=== PATIENT | female | born 1935 | race Caucasian/White ===

== ENCOUNTER 2016-10-12 18:04 | Inpatient (IN) | payer MEDICARE, BC ==
[~2016-10-12] VITALS: Ht 157.5 cm; Wt 60.9 kg
[2016-10-12 18:55] LABS: BASOPHILS 0.1 % (0.0-2.0); EOSINOPHILS 0 % (0-7); HEMATOCRIT 45.3 % (36.0-48.0); HEMOGLOBIN 15.9 g/dL (12-16); IMMATURE GRANULOCYTES 0.4 % (0-5); LYMPHOCYTES 3.4 % (15-50); MCH 31.2 pg (26.0-34.0); MCHC 35.1 g/dL (31.0-37.0); MCV 88.8 fL (80.0-100.0); MEAN PLATELET VOLUME 8.5 fL (7.4-10.4); NEUTROPHILS 88.1 % (40-80); PLATELET COUNT 194 10x3/uL (130-400); RDW 12.8 % (11.5-14.5); WBC 17.8 10x3/uL (4.8-10.8)
[2016-10-12 19:23] LABS: ALBUMIN 4.2 g/dL (3.4-5.0); ALKALINE PHOSPHATASE 99 U/L (46-116); ALT (SGPT) 42 U/L (10-68); BILIRUBIN - TOTAL 0.55 mg/dL (0.2-1.3); CALC OSMOLALITY 266 mosm/kg (275-300); CALCIUM 9.6 mg/dL (8.5-10.1); CARBON DIOXIDE 28.6 mmol/L (21.0-32.0); CHLORIDE - SERUM 90 mmol/L (98-107); CREATININE - SERUM 0.7 mg/dL (0.6-1.3); GLUCOSE 150 mg/dL (74-106); POTASSIUM - SERUM 4.8 mmol/L (3.5-5.1); PROTEIN - SERUM 7.4 g/dL (6.4-8.2); SODIUM 130 mmol/L (136-145); UREA NITROGEN 20 mg/dL (7-18); eGFR NON AFRICAN AMERICAN 85 mL/min (90-120)
[2016-10-12 19:29] LABS: TROPONIN-I < 0.017 ng/mL (0.000-0.060)
[2016-10-12 19:33] LABS: UDS - AMPHET NEGATIVE QUAL (NEGATIVE); UDS - BARB NEGATIVE QUAL (NEGATIVE); UDS - BENZO NEGATIVE QUAL (NEGATIVE); UDS - COCAINE NEGATIVE QUAL (NEGATIVE); UDS - METH NEGATIVE QUAL (NEGATIVE); UDS - OPIATE NEGATIVE QUAL (NEGATIVE); UDS - PCP NEGATIVE QUAL (NEGATIVE); UDS - THC NEGATIVE QUAL (NEGATIVE)
[2016-10-12 19:52] LABS: APPEARANCE CLOUDY (CLEAR); BILIRUBIN NEGATIVE (NEGATIVE); COLOR YELLOW (YELLOW); EPITHELIAL CELLS 0-5 /hpf (0-5); GLUCOSE NEGATIVE (NEGATIVE); KETONE NEGATIVE (NEGATIVE); LEUKOCYTE ESTERASE 1+ (NEGATIVE); NITRITE POSITIVE (NEGATIVE); PROTEIN NEGATIVE (NEGATIVE); SPECIFIC GRAVITY 1.015 (1.005-1.020); UROBILINOGEN NORMAL (NORMAL); WHITE CELLS - URINE 25-50 /hpf (0-5)
[2016-10-12 19:53] LABS: BACTERIA MANY /hpf (NONE SEEN)
[2016-10-12 21:45] VITALS: BP 129/83
--- NOTE | 2016-10-12 21:45 | NUR ---
PT ARRIVED TO ICU VIA HOSPITAL BED. PIV TO RIGHT WRIST; PATENT. PIV TO LEFT WRIST; PATENT. ROOM AIR ON ARRIVAL PLACED ON 2L VIA NC. ZACARIAS IN PLACE; CONCENTRATED, CLOUDY; JANETT URINE. PT LETHARGIC; AROUSES TO VOICE. ORIENTED TO SELF; AGE. UNAWARE OF TIME; SITUATION; AND PLACE. ASSESSMENT COMPLETE. S1S2. NSR SHOWING ON MONITOR. REDDENED/RASH/HIVE AREA ON LEFT LOWER BACK REGION MEASURING APPROX. 5-6 INCHES; NON BLANCHABLE. 2CM REDDENED CIRCULAR AREA LOCATED ON COCCYX; NON BLANCHABLE. GENERALIZED BRUISING TO EXTREMITIES. PERRLA; 4MM BRISK.
[2016-10-12 21:56] VITALS: BP 129/83; BMI 20.1
[2016-10-12 22:00] VITALS: BP 138/71
--- NOTE | 2016-10-12 22:10 | NUR ---
FAMILY AT BEDSIDE. UPDATE GIVEN.
[2016-10-12] MEDS ORDERED: CATAPRES TTS-10.1 MG TD (22:11)
[2016-10-12] MEDS ORDERED: SOMA350 MG PO (22:12)
[2016-10-12] MEDS ORDERED: REMERON30 MG PO (22:12)
[2016-10-12] MEDS ORDERED: FUROSEMIDE20 MG PO (22:13)
[2016-10-12] MEDS ORDERED: K-TAB10 MEQ PO (22:13)
[2016-10-12] MEDS ORDERED: KLONOPIN0.5 MG PO (22:13)
[2016-10-12] MEDS ORDERED: TOPROL XL100 MG PO (22:14)
[2016-10-12 22:30] VITALS: BP 144/71
[2016-10-12 23:00] VITALS: BP 143/74
[2016-10-13] VITALS (40 sets, daily range): BP systolic 64–125; BP diastolic 38–66; Ht 157.5 cm; Wt 60.9 kg
--- NOTE | 2016-10-13 00:37 | NUR ---
PT RESTING; EYES CLOSED. VSS. NO DISTRESS NOTED. WILL CONTINUE TO MONITOR.
--- NOTE | 2016-10-13 01:30 | NUR ---
ORAL CARE PROVIDED. BLACK RESIDUE BUILT UP IN TEETH; ROOF OF MOUTH; TONGUE; AND IN BUCCAL CAVITY.
--- NOTE | 2016-10-13 03:15 | NUR ---
REASSESSMENT COMPLETE. PT LETHARGIC; RESPONDS TO PAINFUL STIMULI. ABLE TO STATE NAME THEN IMMEDIATELY FALLS BACK ASLEEP. NOTED DECREASE IN BP AND HR. MONITORING CLOSELY.
[2016-10-13 04:16] LABS: BASOPHILS 0 % (0.0-2.0); EOSINOPHILS 0.1 % (0-7); HEMATOCRIT 43.5 % (36.0-48.0); HEMOGLOBIN 15.2 g/dL (12-16); IMMATURE GRANULOCYTES 0.2 % (0-5); LYMPHOCYTES 5.7 % (15-50); MCHC 34.9 g/dL (31.0-37.0); MCV 88.8 fL (80.0-100.0); MEAN PLATELET VOLUME 8.6 fL (7.4-10.4); PLATELET COUNT 205 10x3/uL (130-400); RDW 13.1 % (11.5-14.5); WBC 12.3 10x3/uL (4.8-10.8)
[2016-10-13 04:25] LABS: CALC OSMOLALITY 262 mosm/kg (275-300); CALCIUM 8.8 mg/dL (8.5-10.1); CARBON DIOXIDE 29.7 mmol/L (21.0-32.0); CHLORIDE - SERUM 92 mmol/L (98-107); CREATININE - SERUM 0.7 mg/dL (0.6-1.3); GLUCOSE 125 mg/dL (74-106); SODIUM 129 mmol/L (136-145); UREA NITROGEN 21 mg/dL (7-18); eGFR NON AFRICAN AMERICAN 85 mL/min (90-120)
[2016-10-13 04:28] LABS: POTASSIUM - SERUM 4.9 mmol/L (3.5-5.1)
--- NOTE | 2016-10-13 05:18 | NUR ---
PT CONTINUES TO BE BRADYCARDIC; BP REMAINS WITH MAP ABOVE 65. WILL CONTINUE TO MONITOR.
--- NOTE | 2016-10-13 07:00 | NUR ---
PT REPORT REC'D, PT CARE ASSUMED. PT LETHARGIC, DOES NOT RESPOND TO STERNAL RUB, DOES NOT FOLLOW COMMANDS. VSS, 2LNC. LEFT AND RIGHT WRIST PIV DRESSING CDI, SEE IV FLOW SHEET. SHIFT ASSSESSMENT COMPLETED, SEE FLOW SHEET. ROOM FREE OF CLUTTER CALL LIGHT IN REACH, WILL CONTINUE TO MONITOR PT.
--- NOTE | 2016-10-13 08:30 | NUR ---
PT ASKING TO GET ON BED PRADHAN, PLACED PT ON BEDPAN, 200 CC CLEAR YELLOW URINE
--- NOTE | 2016-10-13 10:41 | NUR ---
Is the patient Alert and Oriented? No 0 * How many steps to enter\exit or inside your home? 0 0 * PCP MARC LI APN AT DR. CHAVES'S OFFICE 0 * Pharmacy [facility] 0 * Preadmission Environment Assisted Living 0 * Facility Name [facility] 0 * ADLs Independent 0 * Equipment Rolling Walker Shower Chair 0 * Other Equipment RAISED TOILET SEAT 0 * List name and contact numbers for known caregivers / representatives who currently or will assist patient after discharge: DAUGHTER: JESSICA SINGH [phone] 0 * Community resources currently utilized Home Health 0 * Please name any agencies selected above. [facility] AND [facility] 0 * Additional services required to return to the preadmission environment? Yes 0 * Can the patient safely return to the preadmission environment? No 0 * Has this patient been hospitalized within the prior 30 days at any hospital? No PATIENT LIVES ALONE AT [facility]. SHE WAS INDEPENDENT IN ALL HER ADL'S. PATIENT'S DAUGHTER IS AT THE BEDSIDE AND ANSWERS MY QUESTIONS. SHE STATES THAT HER MOTHER SEES MARC LI APN AT DR. CHAVES'S OFFICE. SHE GETS HER MEDS FROM [facility]. PATIENT HAS A WALKER, SHOWER CHAIR, AND RAISED TOILET SEAT. PATIENT IS CURRENT WITH [facility] AND RECEIVING PT AND OT ACCORDING TO PATIENT'S DAUGHTER. SHE STATES THERE ARE NO STEPS TO ENTER HER MOTHERS HOME. PATIENT TOOK OVERDOSE OF MEDICATIONS AND TOLD HER DAUGHTER SHE WAS TRYING TO KILL HERSELF. PATIENT IS TO BE EVALUATED BY PSYCHIATRY AND POSSIBLE GO TO CARE WHEN SHE IS MEDICALLY STABLE. CM TO FOLLOW.
--- NOTE | 2016-10-13 11:00 | NUR ---
PT DAUGHTER AT THE BEDSIDE, ALL QUESTIONS ANSWERED, VSS. REASSESSMENT COMPLETED, SEE FLOW SHEET. ROOM FREE OF CLUTTER, CALL LIGHT IN REACH. PT CLOSE TO NURSES STATION, WILL CONTINUE TO MONITOR PT.
--- NOTE | 2016-10-13 12:05 | NUR ---
PT LETHARGIC, NON RESPONSIVE, NARCAN GIVEN, NO RESPONSE FROM PT, DR. CHAVES INFORMED.
--- NOTE | 2016-10-13 12:31 | NUR ---
ROMAZICON GIVEN, PT LIFTED EYEBROWS, NO VERBAL RESPONSE. PT DOES NOT FOLLOW COMMANDS. DR. CHAVES INFORMED. WILL CONTINUE TO MONITOR PT.
--- NOTE | 2016-10-13 15:00 | NUR ---
PT RESTING WITH EYES CLOSED, NO RESPONSE TO STIMULI. REASSESSMENT COMPLETED, SEE FLOW SHEET. REASSESSMENT COMPLETED, SEE FLOW SHEET. ROOM FREE OF CLUTTER, CLOSE TO NURSES STATION. WILL CONTINUE TO MONITOR PT.
--- NOTE | 2016-10-13 19:00 | NUR ---
REPORT RECEIVED AND ASSESSMENT COMPLETED. SEE FLOWSHEET FOR FULL DETAILS.
--- NOTE | 2016-10-13 21:00 | NUR ---
PT REPOSITIONED IN BED. PT ON DOPAMINE DRIP AT 5 MCG. VSS. WILL MONITOR CLOSELY FOR CHANGES.
--- NOTE | 2016-10-13 23:00 | NUR ---
REASSESSMENT COMPLETED. SEE FLOWSHEET. SPOKE WITH FAMILY REGARDING PATIENTS CARE AND MEDICATIONS DURING THE 2200 HOUR. REPOSITIONED PATIENT AT THIS TIME.
[2016-10-14] VITALS (63 sets, daily range): BP systolic 93–166; BP diastolic 8–81
--- NOTE | 2016-10-14 01:42 | NUR ---
DOPAMINE INCREASED TO 6 MCG IN ORDER TO OBTAIN A SYSTOLIC PRESSURE ABOVE 90. WILL CONTINUE TO MONITOR.
--- NOTE | 2016-10-14 03:16 | NUR ---
REASSESSMENT COMPLETE, NO CHANGES NOTED, WILL CON'T TO MONITOR
--- NOTE | 2016-10-14 05:15 | NUR ---
REPOSITONED FOR COMFORT, WILL CON'T TO MONITOR
--- NOTE | 2016-10-14 07:15 | NUR ---
REC'E REPORT AND RESUMED CARE, OPENS EYES, DOES NOT FOLLOW COMMANDS, O2 VIA NC AT 2L SAT 96%, DOPAMINE INFUSING AT 6 MCG, BP 112/55, WITH MAP OF 73, OTHER VSS, RIGHT AND LEFT WRIST PIV'S WITH CDI DRESSING, ZACARIAS TO GRAVITY WITH CLEAR YELLOW DRAINAGE, SCD'S B/L, REPOSITIONED TO LEFT SIDE WITH PILLOW PROPPED TO BACK AND HEELS FLOATED, DAUGHTER AT BEDSIDE, DISCUSSED ALTERED MENTAL STATUS AND BP [facility] CAUSES FOR HOSPITALIZATION, AWAITNG TO SPEAK WITH DR CHAVES RE: POC, NO OTHER NEEDS AT THIS TIME
--- NOTE | 2016-10-14 07:45 | NUR ---
DR CHAVES AT BEDSIDE, SPOKE WITH DAUGHTER, AWAITING PROGNOSIS FROM DR ESCOBAR CONSULT, NO NEW ORDERS AT THIS TIME
--- NOTE | 2016-10-14 07:48 | HP ---
PATIENT: JEET POPE MEDICAL RECORD: [id number] ACCOUNT: [id number] LOCATION:[facility] D.2306 : 36 ADMISSION DATE: 10/12/16 HISTORY AND PHYSICAL EXAMINATION REASON FOR ADMISSION: Altered mental status, possible OD. HISTORY OF PRESENT ILLNESS: The patient is a 80-year-old female with history of bipolar illness. She also has hypertension. Daughter says she is using polypharmacy in her blood pressure medications to adjust her blood pressure. Her daughter states that possibly, her mother took at least 20 metoprolol tablets. She did not tell her and when she went to see her yesterday afternoon, she was found leaning back in a chair over the side of the rail upside down with vomitus in her mouth. She was brought in by EMS to the hospital and admitted to the ICU. The patient did admit to her daughter that she attempted suicide because she was tired of living the way she was living. PAST MEDICAL HISTORY: Longstanding history of bipolar illness, anxiety, chronic pain syndrome, hearing loss, urinary retention, has used a catheter in the past. Spastic torticollis diagnosed at age 30. PAST SURGICAL HISTORY: Appendectomy in 1944, hysterectomy in 1973, hysterectomy in 1973, colonoscopy on 09/21/2015 SOCIAL HISTORY: She is . Not a former smoker, does not use alcohol. 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 She recently moved here from [place]. Her daughter cares for her. FAMILY HISTORY: Father at 76, with hypertension, COPD and cancer of the lung. Mother at 98, with hypertension and senescence. ALLERGIES: MINOO INHIBITORS, AMLODIPINE, AMOXIL, APRESOLINE, BACTRIM, BENICAR, BYSTOLIC, DILACOR, DIOVAN, HYZAAR AND PROZAC. CURRENT MEDICATIONS: Clonidine 0.1 mg patch q. week, mirtazapine 30 mg tablets at bedtime, Soma 350 p.o. 4 times daily, Lasix 20 mg q.a.m., colestipol 1 g tablet p.o. t.i.d., clonazepam 0.5 mg p.o. b.i.d., [place] 5/325 one q.6 for pain, potassium chloride ER 10 mEq p.o. daily, Toprol ER 100 mg p.o. twice a day. REVIEW OF SYSTEMS: Unobtainable from the patient except as noted by the daughter. PHYSICAL EXAMINATION: GENERAL: The patient at this time is minimally arousable to pain. VITAL SIGNS: Blood pressure is 100/60, heart rate is 58 and regular, respirations are 22. She is afebrile. HEENT: Pupils were somewhat pinpoint, but reactive. Sclerae nonicteric. Oropharynx unremarkable except for some dried dark mucus around her mouth. NECK: Supple. CHEST: Shows bilateral wheeze in the upper lobes. No rales. HEART: Bradycardic without murmur. ABDOMEN: Soft and nontender. PELVIC: Deferred. EXTREMITIES: No CC and E. NEUROLOGICAL: The patient responds to some vocal commands with yes and no. She HISTORY AND PHYSICAL [id number] JEET POPE is moving arms and legs without difficulty. IMAGING: CT of the brain shows some atrophy, no acute changes. Chest x-ray is unremarkable. It does show an ascending aortic aneurysm, however. LABORATORY DATA: Her lab work on admission showed a white count of 17.8 thousand, H&H of 15 and 45.3 respectively, platelet count 194,000 with left shift. Blood gas showed a pH 7.4, CO2 of 41, pO2 of 90 on 2 L. Chemistry showed sodium 130, potassium 4.8, carbon dioxide 28.6, BUN 20, creatinine 0.7. Liver function is normal except for an AST of 125. Urine drug screen was negative. Urinalysis was cloudy, nitrite positive with 25-50 white cells. Again, CT of the brain showed atrophy, small vessel changes, no acute intracranial abnormality. Chest x-ray showed ascending aortic enlargement, no pulmonary abnormalities. ASSESSMENT: 1. Possible beta-jose suicide attempt with overdose. 2. Altered mental status secondary to #1. 3. Bipolar depression. 4. Bradycardia due to overdose. 5. Urinary tract infection. 6. Chronic pain syndrome. 7. Chronic urinary retention, post-menopausal, post-hysterectomy, presbycusis, spastic torticollis, osteoarthritis, gastroesophageal reflux disease, essential hypertension. PLAN: The patient is in ICU, her daughter is at the bedside. She confirms DNR status. We will have psychiatric evaluation at this time. Monitor for further bradycardia and we will treat for UTI based on culture. TRANSINT:[id number] Voice Confirmation ID: [id number] DOCUMENT ID: [id number] MOHAMUD CHAVES MD at 0748 CC: [id number] DICTATION DATE: 10/13/16853 CIVIL CAD TECH: 10/13/16 1041 ADM IN [facility] [address] [id number]
--- NOTE | 2016-10-14 08:20 | NUR ---
DR ESCOBAR AT BEDSIDE FOR EVAL, NO NEW ORDERS AT THIS TIME
--- NOTE | 2016-10-14 08:50 | NUR ---
AM MEDS GIVEN WITHOUT DIFFICULTY
--- NOTE | 2016-10-14 09:00 | NUR ---
DAUGHTER AND FRIENDS AT BEDSIDE, PATIENT EYES ARE OPENED WHEN ASKED IF SHE COULD HEAR, SHE RESPONED WITH YES. ATTEMPTS MADE BY PATIENT TO TRACK IN THE DIRECTION OF VOICES, DOES NOT ATTEMPT TO SQUEEZE HAND WHEN PROMPTED
--- NOTE | 2016-10-14 09:54 | NUR ---
TO CT VIA BED WITH PERSONNEL X2, VSS, CONITNUES ON DOPAMINE AT 6MCG
--- NOTE | 2016-10-14 10:00 | NUR ---
TIME FOR REPEAT HEAD CT NOTED TO BE FOR 10/15, EXAM NOT COMPLETED BROUGHT BACK TO ROOM AND RECONNECTED TO MONITOR, VSS, REPOSITIONED UP AND TO BACK WITH HEELS FLOATED
--- NOTE | 2016-10-14 11:00 | NUR ---
NO ACUTE CHANGE FROM PREVIOUS ASSESSMENT, VSS, NO SIGNS OF DISTRESS, CONTINUES ON DOPAMINE AT 6 MCG, NS AT 150 CC/HR.
--- NOTE | 2016-10-14 12:25 | NUR ---
EEG COMPLETED BY NEURO TECH, TOLERATED WITHOUT DIFFICULTY
--- NOTE | 2016-10-14 12:30 | NUR ---
FAMILY AT BEDSIDE, STATUS UPDATED, VOICES NO NEEDS AT THIS TIME
--- NOTE | 2016-10-14 14:58 | NUR ---
NS 1000ML BAG HUNG FOR INFUSION, RATE CONTINUED AT 150 CC/HR, RESTING WITH NO SIGNS OF DISTRESS, VSS, CONTINUES ON DOPAMINE AT 6 MCG, AROUWES TO VERBAL STIMULI, SLOW TO RESPOND BUT FOLLOWS COMMANDS, STATES ONE WORD TO YES OR NO QUESTIONS, TRACKS AROUND ROOM, DOES NOT MAKE SENTENCES, NO OTHER ACUTE CHANGE FROM PREVIOUS ASSESSMENT
--- NOTE | 2016-10-14 15:05 | NUR ---
FAMILY AT BEDSIDE, STATUS UPDATED, VOICES NO NEEDS AT THIS TIME
--- NOTE | 2016-10-14 18:00 | NUR ---
FAMILY AT BEDSIDE, STATUS UPDATE, TOOTHETTES TO BEDSIDE FOR MOUTH MOISTURE, NO OTHER NEEDS AT THIS TIME
--- NOTE | 2016-10-14 19:00 | NUR ---
Assessment complete. See flowsheet. Pt eyes closed upon entrance into room with respirations shallow and unlabored. Pt receiving O2 @ 2L NC. Lung sounds present crackles to RUL RML and clear to KRISTOFER with diminished lower lobes. HR SR with S1S2 auscultated. All peripheral pulses +1 with capillary refill <3 seconds. Pt moves extremities with 1/5 strength to command. Pt tracks with eyes but not attempting conversation at this time. Pupils size 3 bilaterally ERRL. Right forearm 22g PIV site CDI no s/s infection or infiltration with NS infusing @ 150cc/hr. Left wrist 20g PIV site CDI no s/s infection or infiltration with Dopamine infusing @ 3mcg/kg/min. Abdomen soft, non-distended with BS hypoactive to all quadrants. Evans catheter secure retrieving clear/yellow urine. SCDs secure. Pt positioned to left side. HOB @ 30 degrees. Arms and heels bridged. NO s/s pain or distress. CPOC.
--- NOTE | 2016-10-14 21:00 | NUR ---
Pt family here with update given and questions addressed. Family providing oral swabs with fresh ice water. Pt positioned to right side. HOB @ 30 degrees. No neuro changes to note.
--- NOTE | 2016-10-14 23:00 | NUR ---
Reassessment complete. See flowsheet. No neuro changes to note. O2 @ 2L NC. Lung sounds continue to present crackles to RUL RML with diminished lower lobes. HR SR with S1S2 auscultated. PIV sites remain CDI with NO IVF changes to note from previous assessment. BS remain hypoactive to all quadrants. Evans remains secure retrieving clear/yellow urine. Pt repositioned to back with HOB @ 30 degrees. Arms and heels remain bridged. Linens clean and dry. Temp 98.9F temporally. CPOC.
--- NOTE | 2016-10-14 23:33 | NUR ---
SBPs 150-170. Dopamine wean initiated from 3-2mcg/kg/min. HR 72bpm currently.
[2016-10-15] VITALS (25 sets, daily range): BP systolic 124–173; BP diastolic 58–85
--- NOTE | 2016-10-15 01:00 | NUR ---
Pt repositioned to left side. HOB @ 30 degrees. Dopamine gtt weaned off. VSS. NO s/s pain or distress. CPOC.
--- NOTE | 2016-10-15 03:00 | NUR ---
Reassessment complete. See flowsheet. Pt awake and following partial conversation at this time. Pt remains oriented to person only and continues to follow commands to move extremities but unable to move against gravity at this time. Speech is very soft and the patient is not able to speak in complete sentences and repeats herself frequently. O2 @ 2L NS. Lung sounds currently present fine crackles to all pino with diminished lower lobes. Pt encouraged to cough but states "no". HR remains SR with S1S2 auscultated. PIV sites CDI with left wrist PIV CDI; saline locked and right forearm PIV site with NS infusing @ 150cc/hr. BS remain hypoactive to all quadrants. Evans secure and retrieving clear/yellow urine. Pt pulled up in bed and positioned to back with HOB elevated to 30 degrees and arms/heels rebridged. SCDs remain secure. Linens clean/dry. Television turned on TVN per request. NO other changes to note. CPOC.
[2016-10-15 04:50] LABS: BASOPHILS 0.1 % (0.0-2.0); EOSINOPHILS 0 % (0-7); HEMATOCRIT 36.8 % (36.0-48.0); HEMOGLOBIN 11.9 g/dL (12-16); IMMATURE GRANULOCYTES 0.4 % (0-5); LYMPHOCYTES 9.5 % (15-50); MCH 30.2 pg (26.0-34.0); MCHC 32.3 g/dL (31.0-37.0); MCV 93.4 fL (80.0-100.0); MEAN PLATELET VOLUME 8.4 fL (7.4-10.4); MONOCYTES 12.7 % (2-11); NEUTROPHILS 77.3 % (40-80); RBC 3.94 10x6/uL (4.00-5.40); RDW 13.8 % (11.5-14.5); WBC 10.8 10x3/uL (4.8-10.8)
[2016-10-15 04:53] LABS: PLATELET COUNT 133 10x3/uL (130-400)
--- NOTE | 2016-10-15 05:00 | NUR ---
Pt repositioned to left side. HOB @ 30 degrees. Oral care completed.
--- NOTE | 2016-10-15 05:00 | NUR ---
Pt repositioned to right side. HOB @ 30 degrees. Oral care completed.
[2016-10-15 05:09] LABS: CALC OSMOLALITY 277 mosm/kg (275-300); CALCIUM 7.7 mg/dL (8.5-10.1); CARBON DIOXIDE 24.9 mmol/L (21.0-32.0); CHLORIDE - SERUM 107 mmol/L (98-107); CREATININE - SERUM 0.6 mg/dL (0.6-1.3); GLUCOSE 81 mg/dL (74-106); POTASSIUM - SERUM 3.5 mmol/L (3.5-5.1); SODIUM 139 mmol/L (136-145); UREA NITROGEN 14 mg/dL (7-18); eGFR NON AFRICAN AMERICAN > 90 mL/min (90-120)
--- NOTE | 2016-10-15 12:30 | NUR ---
PATIENT DID VERY WELL WITH BED SIDE SWALLOW, NO NOTED DIFFICULTY SWALLOWING, NO NOTED O2 SAT < POST SWALLOW, NO NOTED COUGHING. FULL LIQUID DIET ORDERED.
--- NOTE | 2016-10-15 19:00 | NUR ---
Assessment complete. See flowsheet. Pt awake and repositioned to left side per request. Pt pulled up and HOB elevated to 30 degrees. Pt oriented to person and place only but following conversation well. Pupils size 3 bilaterally ERRLA. Pt receiving O2 @ 2L NC. Respirations shallow and unlabored. Lung sounds clear to all pino with diminished lower lobes. HR SR with S1S2 auscultated. All peripheral pulses +1 with capillary refill <3 seconds. Right forearm PIV site CDI no s/s infection or infiltration with NS @ 50cc/hr. Left wrist PIV site CDI saline locked. BS + to all quadrants. Evans secure retrieving clear/yellow urine. Pt SCD placement fixed and turned on. Arms and heels bridged. rapport established. Fresh ice water provided per pt request. Call light and bedside table within pt reach. No further request at this time. CPOC.
--- NOTE | 2016-10-15 21:00 | NUR ---
Pt family here with update given and questions addressed. Rapport established. Pt repositioned to right side. HOB @ 30 degrees. pt helped with sips of ice water. Arms and heels remain bridged.
--- NOTE | 2016-10-15 23:00 | NUR ---
Reassessment complete. See flowsheet. Pt awake with and following conversation with no neuro changes to note from previous assessment. Pt repositioned to left side. HOB @ 15 degrees. O2 @ 2L NC. Lung sounds remain CTA with diminished lower lobes. HR SR. S1S2 auscultated. All peripheral pulses +1 with capillary refill <3 seconds. PIV sites remain CDI with NO IVF changes to note from previous assessment. BS + to all quadrants. Evans remains secure retrieving clear/yellow urine. Mepilex dressing applied to buttox skin tear with reddened area around site that blanches. Pillow placed between knees. Call light and bedside table within pt reach. CPOC.
[2016-10-16] VITALS (24 sets, daily range): BP systolic 104–184; BP diastolic 45–88
--- NOTE | 2016-10-16 01:00 | NUR ---
Pt repositioned to right side. VSS. Pt resting with no distress. Call light and bedside table remain within pt reach. CPOC.
--- NOTE | 2016-10-16 03:00 | NUR ---
Reassessment complete. See flowsheet. Pt awake with and following conversation with no neuro changes to note from previous assessment. Pt repositioned to back. HOB @ 30 degrees. O2 @ 2L NC. Lung sounds remain CTA with diminished lower lobes. HR SR. S1S2 auscultated. All peripheral pulses +1 with capillary refill <3 seconds. PIV sites remain CDI with NO IVF changes to note from previous assessment. BS + to all quadrants. Evans remains secure retrieving clear/yellow urine. Arms and heels bridged. Call light and bedside table remain within reach. CPOC.
--- NOTE | 2016-10-16 05:00 | NUR ---
Pt repositioned to right side with sips of water provided. Leg exercises against gravity with ROM to all extremities completed. CPOC.
--- NOTE | 2016-10-16 06:00 | NUR ---
Stat CBC and BMP ordered for AM labs
[2016-10-16 07:11] LABS: CALC OSMOLALITY 274 mosm/kg (275-300); CALCIUM 7.9 mg/dL (8.5-10.1); CARBON DIOXIDE 28.2 mmol/L (21.0-32.0); CHLORIDE - SERUM 104 mmol/L (98-107); CREATININE - SERUM 0.6 mg/dL (0.6-1.3); GLUCOSE 112 mg/dL (74-106); POTASSIUM - SERUM 3.1 mmol/L (3.5-5.1); SODIUM 137 mmol/L (136-145); UREA NITROGEN 12 mg/dL (7-18); eGFR NON AFRICAN AMERICAN > 90 mL/min (90-120)
[2016-10-16 07:16] LABS: BASOPHILS 0.3 % (0.0-2.0); EOSINOPHILS 0.5 % (0-7); HEMATOCRIT 31.2 % (36.0-48.0); HEMOGLOBIN 10.4 g/dL (12-16); IMMATURE GRANULOCYTES 0.3 % (0-5); LYMPHOCYTES 14.1 % (15-50); MCH 30.5 pg (26.0-34.0); MCHC 33.3 g/dL (31.0-37.0); MCV 91.5 fL (80.0-100.0); MEAN PLATELET VOLUME 8.2 fL (7.4-10.4); MONOCYTES 13.1 % (2-11); NEUTROPHILS 71.7 % (40-80); PLATELET COUNT 136 10x3/uL (130-400); RBC 3.41 10x6/uL (4.00-5.40); RDW 13.5 % (11.5-14.5); WBC 9.5 10x3/uL (4.8-10.8)
--- NOTE | 2016-10-16 11:00 | NUR ---
NO CHANGE IN ASSESSMENT
--- NOTE | 2016-10-16 15:00 | NUR ---
NO CHANGE IN ASSESSMENT
--- NOTE | 2016-10-16 18:14 | NUR ---
RIGHT FA IV NOTED TO BE INFLITRATED, REMOVED AND NEW 20G PIV STARTED TO RITH WRIST, NABEEL WELL. ALL IV FLUIDS MOVED TO THIS SITE.
--- NOTE | 2016-10-16 19:40 | NUR ---
REPORT RECEIVED. ASSESSMENT COMPETE PER FLOW SHEET. VSS. DENIES NEEDS OR PAIN.W ILL CONTINUE TO MONITOR.
--- NOTE | 2016-10-16 20:29 | NUR ---
GIVEN ICE WATER PER REQUEST. REPOSIITONED ON R SIDE. NEEDS MET.
--- NOTE | 2016-10-16 21:24 | NUR ---
FAMILY AT BEDSIDE. GIVEN UDPATE.
--- NOTE | 2016-10-16 23:20 | NUR ---
REASSESSMENT COMPELTE PER FLOW SHEET. PT BECOMING INCREASINGLY ANXIOUS. REPOSITIONED FOR COMFORT TURNED ON TV DISTRACTION TECHNIQUE.
[2016-10-17] VITALS (20 sets, daily range): BP systolic 134–179; BP diastolic 58–90
--- NOTE | 2016-10-17 01:12 | NUR ---
ASSISTED ONTO R SIDE. NO NEW CHANGES. VSS.
--- NOTE | 2016-10-17 03:13 | NUR ---
REASSESSMENT COMPLETE PER FLOW SHEET. VSS. PT SLEEPING AT THIS TIME. WILL CONTINUE TO MONITOR
--- NOTE | 2016-10-17 05:16 | NUR ---
REPOSITIONED UP IN BED ON L SIDE. NEEDS MET.
[2016-10-17 07:33] LABS: CALCIUM 7.9 mg/dL (8.5-10.1); CARBON DIOXIDE 27.7 mmol/L (21.0-32.0); CHLORIDE - SERUM 102 mmol/L (98-107); GLUCOSE 115 mg/dL (74-106); MAGNESIUM - SERUM 1.5 mg/dL (1.8-2.4); POTASSIUM - SERUM 3.2 mmol/L (3.5-5.1); SODIUM 137 mmol/L (136-145); eGFR NON AFRICAN AMERICAN > 90 mL/min (90-120)
[2016-10-17 07:34] LABS: CALC OSMOLALITY 272 mosm/kg (275-300); CREATININE - SERUM 0.4 mg/dL (0.6-1.3); UREA NITROGEN 8 mg/dL (7-18)
--- NOTE | 2016-10-17 08:22 | EEG ---
PATIENT:JEET POPE DATE OF SERVICE: 10/12/16 MEDICAL RECORD: [id number] DATE OF : 37 LOCATION:D.230 D.ICU ADMISSION DATE: 10/12/16 REFERRING PHYSICIAN: INTERPRETING PHYSICIAN: BANDAR ESCOBAR MD DATE OF SERVICE: 10/14/2016 Electroencephalographic Report Referred by myself as an inpatient, currently in room 2306. ELECTROENCEPHALOGRAM NUMBER: [id number] DATE OF EXAMINATION: 10/14/2016 at 12:00 noon. TECHNICAL DATA: This electroencephalographic recording consists of approximately 20 minutes of data collection utilizing the international 10/20 system of electrode placement and both referential and non-referential montages. Sixteen channels of electrocerebral recording are accompanied by a 17th channel dedicated to the electrocardiographic rhythm and 2 channels of electromyographic recording. Recording is performed entirely in the lethargic state utilizing activation by photic stimulation as well as verbal and tactile stimulation. ELECTROENCEPHALOGRAPHIC DATA: The entirety of the recorded electrocerebral activity is performed in the lethargic state. Electromyographic artifact is prominent, but rapid eye movements are not seen. A posterior dominant background is poorly developed and when seen consists of a symmetric semi-arrhythmic waxing and waning 5-6 Hz theta activity. Also seen is continuous slowing in the range of 2-3 Hz, which is irregular in morphology, diffuse and symmetric in distribution. There is some intermixed faster activity in the range of 15-20 Hz. No focal slowing is identified. No epileptiform discharges are seen. Photic stimulation as well as verbal and tactile stimulation induced no change in the recorded electrocerebral activity. INTERPRETATION: Continuous slow, generalized (lethargy). This electroencephalographic recording is indicative of a moderate diffuse encephalopathy. TRANSINT:[id number] Voice Confirmation ID: [id number] DOCUMENT ID: [id number] BANDAR ESCOBAR MD at 0822 CC: [id number] DICTATION DATE: 10/15/16 0738 MEDICAL OFFICE REP: 10/15/16 1011 ADM IN [facility] [address] [place] [address]
--- NOTE | 2016-10-17 10:11 | NUR ---
REPOSITIONED EVERY 2 HOURS AND UPON PATIENT REQUEST
--- NOTE | 2016-10-17 10:32 | NUR ---
Nutrition follow-up: Diet: Regular mechanical soft with thin liquids PO intake ~50% of some meals Labs reviewed Wt: 134# ? Admit wt 109# PO intake is fair at this time. Will continue to provide food choices with selective menus and honor food preferences within diet restrictions. RDN following.
--- NOTE | 2016-10-17 19:06 | NUR ---
REPORT RECIEVED. ASSESSMENT COMPLETE PER FLOW SHEET. VSS. PT GIVEN ICE WATER PER REQUEST. TURNED ON L SIDE. NEEDS MET.
--- NOTE | 2016-10-17 19:11 | NUR ---
UPDATE CALLED TO LORENZA VARELA TO DISCHARGE PT TO SR. CARE
--- NOTE | 2016-10-17 19:20 | NUR ---
Patient seen by DR Ny this afternoon. Discussed inpatient psych during his consult. Patient was willing to go to [facility]. DR Albright her primary had also discussed w/ the patient during his AM rounds. Received telephone call from [facility] that a bed is available. Advised the charge nurse. TC to DR Albright. Primary nurse received an order to transfer the patient to [facility] psych services at [facility]. Patient is medically stable. MD order and face sheet faxed to [phone]. Rec instruction to call report to [phone] after turnover rounds.
--- NOTE | 2016-10-17 19:36 | NUR ---
REPORT GIVEN TO [facility]. WILL GET READY FOR TRANSPORT.
--- NOTE | 2016-10-17 21:00 | NUR ---
PT DISCHARGED TO [facility] AT THIS TIME
--- NOTE | 2016-10-18 14:14 | CN ---
PATIENT NAME:JEET POPE MEDICAL RECORD: [id number] : 37 LOCATION:ROXANAD.2306 ADMIT DATE: 10/12/16 ACCOUNT: [id number] CONSULTING PHYSICIAN: RISSA COBOS MD REFERRING PHYSICIAN: MOHAMUD CHAVES MD DATE OF CONSULTATION: 10/17/2016 Psychiatric Consultation IDENTIFYING DATA: The patient is 80 years old and she is admitted to the hospital on a voluntary basis secondary to overdose. CHIEF COMPLAINT: None. HISTORY OF PRESENT ILLNESS: The patient took a large amount of metoprolol. I believe it is estimated she took 28 tablets of it. She did this at that time with the intent of killing herself. She now denies that she wants to do so, but is very tearful and expresses a lot of depressive symptoms. She denies substance abuse and psychotic symptoms. MENTAL STATUS EXAMINATION: The patient is awake, alert and oriented to person, place, time and somewhat to situation. Her mood is anxious. Her affect is constricted. Thought processes are circumstantial. Memory, concentration and abstraction abilities are moderately impaired and she denies that she would seek to harm herself or others, as well as overt psychotic symptoms. ASSESSMENT: 1. Bipolar disorder by history. 2. Status post overdose. PLAN: At this time, the patient has a psychiatric history with an established diagnosis of bipolar disorder. She very recently attempted to kill herself in a very serious [place]. I am recommending that once she is medically stabilized, she be transferred to the behavioral unit. She is willing to do this on a voluntary basis. TRANSINT:[id number] Voice Confirmation ID: [id number] DOCUMENT ID: [id number] RISSA COBOS MD at 1414 CC: [id number] DICTATION DATE: 10/17/16 1521 CHERRY SORTER: 10/17/16 1619 DIS IN 10/17/16 [address] [place] [address]
--- NOTE | 2016-11-13 20:27 | DS ---
PATIENT:JEET POPE :37 MEDICAL RECORD: [id number] DISCHARGE SUMMARY ADMISSION DATE: 10/12/16 DISCHARGE DATE: 10/17/16 DISCHARGE DIAGNOSES: 1. Suicide attempt with beta jose overdose. 2. Altered mental status secondary to #1. 3. Bipolar depression. 4. Bradycardia due to beta-jose overdose. 5. Urinary tract infection. 6. Chronic pain syndrome. 7. Anoxic brain injury. CONSULTANTS: Henri Ny MD and Richard Mejia MD from Neurology. HOSPITAL COURSE: A 80-year-old female with history of bipolar illness, who admitted to her daughter overtaking metoprolol ER, took approximately twenty 100 mg tablets, stating that she wished to kill herself. Her daughter states she had a history of chronic polypharmacy, and she admitted to her daughter that she was attempting suicide because she was tired of living the way she was living. She was bradycardic and hypotensive. She was placed in the ICU, ____ fluids and cardiac monitoring. Dr. Ny, from psychiatry, saw the patient as well. Once she became more alert, she returned to her baseline. Dr. Ny felt the patient did indeed exhibit bipolar tendencies and agree with her diagnosis of bipolar disorder and he recommended transfer to the behavioral unit once she is stable. She did not require pacing, ultimately improved. At discharge, her H&H was 10.4 and 31.2. Electrolytes were normal. Heart rate is in the 80s. CT of the brain showed chronic small vessel ischemic changes, no intracranial abnormality. With her daughter in agreement, she was transferred to the rehab on above-mentioned date. The patient did require dopamine IV until blood pressure normalized. DISCHARGE MEDICATIONS: Micro-K 10 mEq p.o. daily, lisinopril 20 mg p.o. daily, Lasix 10 mg p.o. q.a.m., Augmentin 500 mg p.o. b.i.d., discontinue on October 17, clonidine TTS 1 patch to chest q.7 days, and Ativan 1 mg q.4 hours p.r.n. anxiety. DIET: Regular. ACTIVITY: Progress as tolerated ____. TRANSINT:[id number] Voice Confirmation ID: [id number] DOCUMENT ID: [id number] MOHAMUD CHAVES MD at 2027 CC: [id number] DICTATION DATE: 11/07/16 1417 TRANSPORTATION ASSOCIATE: 11/08/16 0706 DIS IN 10/17/16 [place] [id number] [place] [address]
== END 2016-10-17 21:00 | disposition short-term general hospital (02) | DRG 918 ==
LOC: D.ER 18:04 → D.M2 19:35 → D.ICU 19:35
PROVIDERS: Emergency Medicine; ADMIT Family Medicine
DX: T44.7X2A Poisoning by beta-adrenoreceptor antagonists, intentional self-harm, initial encounter (principal); F31.81 Bipolar II disorder; G93.1 Anoxic brain damage, not elsewhere classified; I10 Essential (primary) hypertension; Z74.09 Other reduced mobility; D64.9 Anemia, unspecified; Z66 Do not resuscitate; I95.9 Hypotension, unspecified; K59.00 Constipation, unspecified; M43.6 Torticollis; R00.1 Bradycardia, unspecified

== ENCOUNTER 2016-10-17 21:00 | Inpatient (IN) | payer MEDICARE, BC ==
[~2016-10-17] VITALS: Ht 157.5 cm; Wt 47.6 kg
[~2016-10-17 21:00] MED LIST: CATAPRES TTS-10.1 MG TD; FUROSEMIDE20 MG PO; K-TAB10 MEQ PO; KLONOPIN0.5 MG PO; REMERON30 MG PO; SOMA350 MG PO; TOPROL XL100 MG PO
--- NOTE | 2016-10-18 00:03 | NUR ---
[facility] ADMIT TO DR COBOS FROM ICU RELATED TO SUICIDE ATTEMPT. PATIENT WA FOUND BY HER DAUGHTER IN PT HOME LEANING BACK IN CHAIR OVER SIDE RAIL UPSIDE DOWN WITH VOMITUS IN HER MOUTH. SHE WAS TRANSPORTED TO [facility] AND ADMITED TO ICU ON 10/12/16. PATIENT DID ADMIT TO DAUGHTER THAT SHE ATTEMPTED SUICIDE BECAUSE SHE WAS TIRED OF LIVING THE WAY SHE WAY LIVING. PATIENT HAD TAKEN AT LEAST 20 METOPROLOL TABLETS. UPON ARRIVAL TO [facility] PATIENT WAS ALERT AND ORIENTED X4. VITAL SIGNS ARE STABLE. SHE HAS A ZACARIAS INTACT. A DRESSING TO HER BACK COVERING CARNEY RELATED TO LAYING ON SOME TYPE OF WIRE. RED AREA NOTED ON HER BUTTOCKS. PATIENT DAUGHTER, JESSICA EASTMAN, SIGNED ADMIT CONSENTS. PATIENT RECEIVED IN BED AND TRANSFERED TO [facility] BED AND BED ALARM ATTACHED. ORIENTED TO UNIT AND FALLS SAFETY. CALM AND COOPERTIVE WITH CARE.
--- NOTE | 2016-10-18 01:03 | NUR ---
PRN Ativan 0.5 mg PO given for anxiety at 0052.
[2016-10-18 01:06] VITALS: BMI 24.5
[2016-10-18 06:45] LABS: BASOPHILS 0.1 % (0.0-2.0); EOSINOPHILS 1.4 % (0-7); HEMATOCRIT 31.6 % (36.0-48.0); HEMOGLOBIN 10.7 g/dL (12-16); IMMATURE GRANULOCYTES 0.4 % (0-5); LYMPHOCYTES 10.4 % (15-50); MCH 30.4 pg (26.0-34.0); MCHC 33.9 g/dL (31.0-37.0); MCV 89.8 fL (80.0-100.0); MEAN PLATELET VOLUME 8.2 fL (7.4-10.4); MONOCYTES 13.1 % (2-11); NEUTROPHILS 74.6 % (40-80); RBC 3.52 10x6/uL (4.00-5.40); RDW 13.1 % (11.5-14.5)
[2016-10-18 07:15] LABS: ALBUMIN 2.2 g/dL (3.4-5.0); ALKALINE PHOSPHATASE 78 U/L (46-116); ALT (SGPT) 96 U/L (10-68); BILIRUBIN - TOTAL 0.57 mg/dL (0.2-1.3); CALC OSMOLALITY 264 mosm/kg (275-300); CALCIUM 8.2 mg/dL (8.5-10.1); CARBON DIOXIDE 30.4 mmol/L (21.0-32.0); CHLORIDE - SERUM 97 mmol/L (98-107); CHOL - HDL RATIO 2.6 ratio (2.3-4.1); CHOLESTEROL, TOTAL 139 mg/dL (0-200); CREATININE - SERUM 0.4 mg/dL (0.6-1.3); GLUCOSE 114 mg/dL (74-106); HDL CHOLESTEROL 53 mg/dL (32-96); LDL CHOLESTEROL 72 mg/dL (0-100); LDL-HDL RATIO 1.4 ratio (1.5-3.5); POTASSIUM - SERUM 3.5 mmol/L (3.5-5.1); PROTEIN - SERUM 5.4 g/dL (6.4-8.2); SODIUM 133 mmol/L (136-145); THYROID STIMULATING HORMONE 2.73 uIU/mL (0.36-3.74); TRIGLYCERIDE 71 mg/dL (30-200); UREA NITROGEN 7 mg/dL (7-18); eGFR NON AFRICAN AMERICAN > 90 mL/min (90-120)
[2016-10-18 07:25] LABS: PLATELET COUNT 167 10x3/uL (130-400)
[2016-10-18 07:33] LABS: APPEARANCE HAZY (CLEAR); COLOR STRAW (YELLOW); GLUCOSE NEGATIVE (NEGATIVE); LEUKOCYTE ESTERASE NEGATIVE (NEGATIVE); NITRITE NEGATIVE (NEGATIVE); PROTEIN TRACE mg/dL (NEGATIVE)
[2016-10-18 07:34] LABS: BILIRUBIN NEGATIVE (NEGATIVE); KETONE SMALL mg/dL (NEGATIVE); RED CELLS - URINE 0-5 /hpf (0-5); UROBILINOGEN NORMAL (NORMAL); WHITE CELLS - URINE RARE /hpf (0-5)
[2016-10-18 07:35] LABS: MUCUS <1+ /lpf (NONE SEEN)
[2016-10-18 09:21] VITALS: BP 164/79
[2016-10-18 10:29] VITALS: Ht 157.5 cm; Wt 47.6 kg
--- NOTE | 2016-10-18 14:51 | NUR ---
(B)RECEIVED PATIENT SITTING IN A CHAIR AT THE NURSES STATION. ORIENTED X4. WHEN ASKED FOR THE REASON OF HOSPITALIZATION PATIENT RELATES "I DON'T LIKE TALKING ABOUT IT. I TRIED TO END MY LIFE. CAUSE I COULDN'T WALK ANYMORE." PATIENT IS SOMATIC AND RATES PAIN A 10/10 EACH TIME SHE IS ASKED. INFORMED DR GUTHRIE OF PATIENT'S C/O AND NO NEW ORDERS RECEIVED. ZACARIAS TO GRAVITY WITH YELLOW URINE DRAINING WITHOUT DIFFICULTY. DRESSING CHANGED TO ABRASION ON RIGHT SIDE OF LOWER BACK AND TO COCCYX. MAKES NEEDS KNOWN TO STAFF. (I)ADMINISTER MEDS AND MONITOR COMPLIANCE. OBTAIN VERBAL CONTRACT FOR NO SELF HARM. (R)MED COMPLIANT. DENIES FURTHER SI. CONTRACTS VERBALLY FOR NO SELF HARM WHILE HOSPITALIZED. (P)CONTINUE POC AND MAINTAIN FALL PRECAUTIONS.
[2016-10-18 19:39] VITALS: BP 174/89
--- NOTE | 2016-10-18 20:12 | NUR ---
RECEIVED IN DAYROOM. SETTING IN RECLINER WITH HER EYES CLOSED. RESPONDS TO VOICE. DENIES SELF HARM. ALERT AND ORIENTED X4. CALM AND COOPERATIVE WITH CARE AND ASSESSMENTS. ZACARIAS INTACT. ENCOURAGE TO EXPRESS NEEDS AND FEELINGS. CONTINUES TO REST EYES CLOSED. CONTINUE PLAN OF CARE
[2016-10-19 07:22] LABS: RAPID PLASMA REAGIN Non Reactive (Non Reactive)
[2016-10-19 08:00] VITALS: BP 152/84
[2016-10-19 10:18] LABS: FOLATE (FOLIC ACID) - SERUM 18.2 ng/mL (>3.0); VITAMIN D 25 HYDROXY 32.2 ng/mL (30.0-100.0)
--- NOTE | 2016-10-19 16:13 | NUR ---
WOUND CARE CONSULT: PT HAS AN OPEN AREA ON THE RIGHT FLANK AREA MEASURING 1CM X 4CM. IT APPEARS TO HAVE BEEN A BLISTER THAT HAS RUPTURED. THERE IS BRUISING IN THIS AREA ALSO. ON SACRUM THERE IS A 2CM X 4CM STAGE 2 PRESSURE INJURY. LEFT BUTTOCK A 3CM X 2CM STAGE 2 PRESSURE INJURY. RIGHT BUTTOCK HAS SOME BRUISING. RIGHT FOOT/ANKLE HAVE OLD BRUISED AREA. RECOMMEND COVERING OPEN BLISTER ON RIGHT LOWER BACK WITH BORDERED GAUZE AND PROTECTING SACRUM/COCCYX/BUTTOCKS WITH MEPILEX SACRAL DRESSING. WOUND CARE WILL CONTINUE TO MONITOR.
--- NOTE | 2016-10-19 16:22 | NUR ---
RECEIVED THIS AM SITTING IN RECLINER IN HALLWAY AT NURSES STATION.ORIENTED.STATES WHEN ASKED WHY SHE IS HERE "I TRIED TO KILL MYSELF,IT WAS STUPID,STUPID,STUPID."CONTRACTED WITH NURSE TO NOT ATTEMPT SUICIDE.WILL CONTINUE WITH PLAN OF CARE,MONITOR FOR CHANGES AND SAFETY.
[2016-10-19 20:00] VITALS: BP 154/83
--- NOTE | 2016-10-20 03:33 | NUR ---
PATIENT IN DAYROOM, PLEASANT WATCHING T.V ORIENTED TO SELF, TIME AND PLACE. PATIENT HAD COMPLAINTS OF COLD. GIVEN BLANKET. PATIENT MORE RELAXED. CONTINUE TO MONITOR.
[2016-10-20 08:50] VITALS: BP 166/81
--- NOTE | 2016-10-20 09:38 | NUR ---
Rehab Prescreening Consult recieved and the chart has been reviewed. She does not have the medical necessity that is required by Medicare to qualify for IRF at this time. Called and informed her nurse Alanna. Thank you for the referral. Kaia Roberto RN Clinical Liaison, Rehab
--- NOTE | 2016-10-20 12:38 | PN ---
PATIENT:JEET POPE MEDICAL RECORD: [id number] LOCATION:[facility] ADMISSION DATE: 10/17/16 PROGRESS NOTE DATE OF SERVICE: 10/19/2016 SUBJECTIVE: The patient's case was discussed with staff. She has no new complaint. OBJECTIVE: The patient is in good behavioral control with limited insight about her condition. She generally tolerates her medicines well. She has a depressed mood. She is not eating very well, but she denies that she would seek to harm herself. TRANSINT:[id number] Voice Confirmation ID: [id number] DOCUMENT ID: [id number] RISSA COBOS MD at 1238 CC: [id number] DICTATION DATE: 10/19/16 1410 ANCHOR TACKER: 10/19/16 1818 ADM IN [address] [place] [address]
--- NOTE | 2016-10-20 12:38 | PSY ---
PATIENT NAME:JEET POPE MEDICAL RECORD: [id number] : 37 LOCATION:[facility] ADMISSION DATE: 10/17/16 ACCOUNT: [id number] PSYCHIATRIC EVALUATION DATE OF EVALUATION: 10/18/16 Psychiatric Evaluation IDENTIFYING DATA: The patient is 80 years old and she was admitted to the hospital on a voluntary basis. CHIEF COMPLAINT: Overdose. HISTORY OF PRESENT ILLNESS: The patient was admitted to the internal medicine service in the intensive care unit about a week ago. At that time, she attempted to kill herself by taking a large amount of metoprolol. She said she did this with the intent to hurt herself, but she was unresponsive and hypotensive in the intensive care unit. She was thought to have sustained an hypoxic injury with the attempt, but since has come around and is awake, alert and verbal. She says what she did was foolish. She regrets it. She says she would not do it again, but then she goes on to endorse numerous neurovegetative depressive symptoms along with intense feelings of helplessness and hopelessness. PAST MEDICAL HISTORY: Significant for torticollis, cataracts, hypertension, hysterectomy, carpal tunnel release and appendectomy. ALLERGIES: MINOO INHIBITORS, HYDROCHLOROTHIAZIDE, AMOXIL, DILTIAZEM, PROZAC, HYDRALAZINE, HYZAAR, BYSTOLIC, BENICAR, BACTRIM, DIOVAN. CURRENT MEDICATIONS: Include Catapres, Soma, Remeron, Klonopin, Toprol and Lasix. FAMILY HISTORY: Negative for psychiatric disease by her report. SOCIAL HISTORY: The patient is unmarried. She lives in an assisted living center. She apparently functioned reasonably well both socially and occupationally. She has no history of drug or alcohol abuse. MENTAL STATUS EXAMINATION: The patient is awake, alert and oriented to person, place and somewhat to time and situation. Her mood is flat. Her affect is constricted. Thought processes are circumstantial. Memory, concentration and abstraction abilities are least moderately impaired and she denies that she would actively seek to harm herself or others as well as overt psychotic symptoms. ASSETS: Supportive family members. LIABILITIES: Limited insight. DIAGNOSTIC IMPRESSION: AXIS I: Bipolar disorder by history. Rule out dementia. AXIS II: Deferred. AXIS III: Status post overdose, hypertension, torticollis. AXIS IV: Moderate stressors. AXIS V: Global assessment of functioning is 35. PLAN: At this time, the patient is admitted to the hospital secondary to a suicide attempt associated with depressive symptoms that are related to a bipolar disorder. She will be treated with mood stabilizing medications. Her long-term prognosis is guarded. TRANSINT:[id number] Voice Confirmation ID: [id number] DOCUMENT ID: [id number] RISSA COBOS MD at 1238 CC: [id number] DICTATION DATE: 10/18/16 1437 SUPERVISOR SCREEN MAKING: 10/18/16 1651 ADM IN [facility] [address] [id number]
--- NOTE | 2016-10-20 15:57 | NUR ---
PATIENT'S DAUGHTER HERE VISITING. PATIENT IS COMPLAINING ABOUT THE CARE SHE IS RECEIVING. THAT PHYSICAL THERAPY IS NOT WORKING WITH HER. THE STAFF ON THE FLOOR IS NOT CLEANING HER UP HOWEVER THEN SAYS TO DAUGHTER "I DON'T TELL THEM" OR "I'M NOT FINISHED." DAUGHTER ASKED HER WHY SHE IS NOT EATING AND PATIENT RELATES "I'M NOT HUNGRY. THEY FEED ME." DAUGHTER ENCOURAGING HER TO FEED HERSELF AND PATIENT RELATES "I TRY. I CAN'T" HOWEVER IS RAISING ARMS UP AND DOWN IN THE AIR.
--- NOTE | 2016-10-20 17:30 | NUR ---
(B)RECEIVED PATIENT SITTING IN A CHAIR AT THE NURSE'S STATION. ORIENTED X4. RELATES "I'M TIRED OF TELLING YOU EVERYDAY. I DID SOMETHING BAD." HELPLESS AND RESPONDS WITH "I CAN'T," "I DO" OR "I TRY" WHEN ENCOURAGED TO BE INDEPENDENT. COMPLAINS ABOUT THE CARE SHE RECEIVES WHEN TALKS WITH FAMILY. ZACARIAS TO GRAVITY WITH YELLOW URINE DRAINING WITHOUT DIFFICULTY. (I)ADMINISTER MEDS AND MONITOR COMPLIANCE. OBTAIN VERBAL CONTRACT FOR NO SELF HARM. (R)MED COMPLIANT. CONTRACTS VERBALLY FOR NO SELF HARM. (P)CONTINUE POC AND MAINTAIN FALL PRECAUTIONS.
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
[2016-10-20 19:30] VITALS: BP 148/72
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
--- NOTE | 2016-10-20 23:13 | NUR ---
Extremely anxious, calling out repeatedly, unable to sleep, restless and fidgety. Given Ativan 0.5mg po and Haldol 2mg po for anxiety and agitation.
--- NOTE | 2016-10-21 00:15 | NUR ---
Patient sleeping at this time, PRNs given earlier deemed effective.
--- NOTE | 2016-10-21 03:30 | NUR ---
Ativan given on request for anxiety, complains of unable to get back to sleep.
--- NOTE | 2016-10-21 05:30 | NUR ---
Patient did resettle to sleep and is still sleeping, Ativan deemed effective.
[2016-10-21 09:40] VITALS: BP 170/80
--- NOTE | 2016-10-21 13:42 | PN ---
PATIENT:JEET POPE MEDICAL RECORD: [id number] LOCATION:YOSI PalDereck112 ADMISSION DATE: 10/17/16 PROGRESS NOTE DATE OF SERVICE: 10/20/2016 SUBJECTIVE: The patient's case was discussed with staff. She has no new complaint. OBJECTIVE: The patient is depressed, but not suicidal. She is going to have Dr. Sania Lamb test her tomorrow and anxious to see those results. I do not think she has an advanced dementia, but I am uncertain as to whether or not she has a mild dementia. ASSESSMENT: No change in diagnoses. PLAN: The patient's Remeron is going to be discontinued secondary to concerns about its antihistaminic properties. She is not eating adequately and will be prescribed Megace. TRANSINT:[id number] Voice Confirmation ID: [id number] DOCUMENT ID: [id number] RISSA COBOS MD at 1342 CC: [id number] DICTATION DATE: 10/20/16 1258 PRECINCT POLICE LIEUTENANT: 10/20/16 2019 ADM IN [address] [place] [address]
--- NOTE | 2016-10-21 15:24 | NUR ---
B.) Received patient this am lying in bed, alert and oriented times 4, patient does not want to respond to question of why are you here," you all ask me this everyday, I dont want a stigma about what I did, I'm really not that type of person." Agreed to contract for safety. I.) Administer medications and monitor compliance, providde one on one time to verbalize feelings. Monitor and maintain safety. R.) Compliant with medications. Converses with others, no suicidal ideations. Safety maintained. P.) Continue plan of care.
[2016-10-21 19:30] VITALS: BP 146/74
--- NOTE | 2016-10-22 02:45 | NUR ---
B) Recieved laying in a familia chair in the day room, alert and oriented to self, helpless and wanting others to do for her, I) Administered perscribed medications, redirected as needed, R) Medication compliant, demanding and needy P) Continue plan of care, continue to monitor.
--- NOTE | 2016-10-22 02:56 | NUR ---
PRN ativan 0.5 mg PO given for anxiety.
[2016-10-22 08:00] VITALS: BP 154/79
--- NOTE | 2016-10-22 10:00 | NUR ---
Spoke with patient this am and explained to her that she needed to be doing AROM exercises with her legs, she says "I do" Patient does not do this on her own, she needs much prompting. Patient is demanding and has multiple requests. "Take off my shoes" Patient has slip on shoes on and she is able to kick them off, then she asked to have socks on then she wanted to be repositioned, then she asked to go to the bathroom. Patient says she is in pain and rates pain at 10 most of the time unless she is sleeping.
--- NOTE | 2016-10-22 12:44 | NUR ---
B) Patient is more alert and awake today, she has interacted with some staff, not many of the other patients, she does still have her neck pillow on and keeps her head crooked. She will stand with assist, but she does not initiate her own active ROM exercises, she has to be prompted. Patient has a venegas catheter in place draining clear yellow urine. She is able to state what she needs, she does not know where she is and she does not know why she is here. Patient has not made any S.I. statements today. I) Provide prescribed meds. R) Patient is compliant with meds and she needs a lot of prompting to get her to do groups and activities. P) Continue plan of care.
--- NOTE | 2016-10-22 17:25 | NUR ---
Patient's daughter Ingris did come to visit today with two others. The three of them circled her familia chair and began immediate assistance, propping her up more, repositioning, then they began asking her questions. "When did you have a bath last" Then they called Urbano over who is a pulled tumbler operator and asked her "When did she have a bath last?" Urbano heard Bailey say "Yesterday" then the daughter said "Well, doesn't it matter what she says?" Urbano tried to answer nicely. This nurse overheard the conversation and went to their side and introduced myself as the charge nurse, asked them to come speak to me. Ingris said "After I visit my Mother, I am not interrupting my visit" I said "That will be over in 5 minutes". This nurse stayed in the day room in case they did want to visit with me, they stayed longer than 1700. This nurse thought they were waiting to speak to me, but they wanted more time to visit with Mother. Ingris told rUbano that she did not want to see me and they left promptly.
[2016-10-22 19:30] VITALS: BP 145/50
--- NOTE | 2016-10-23 01:27 | NUR ---
PRN Ativan 0.5 mg PO given for anxiety at 0044.
--- NOTE | 2016-10-23 01:28 | NUR ---
B) Recieved laying in a gerichair in the day room, alert and oriented to self, quiet and withdrawn, needy at times, I) Administered perscribed medications, redirected as needed, R) Medication compliant.P) continue plan of care.
--- NOTE | 2016-10-23 03:44 | NUR ---
PRN Ativan 0.5 mg PO given for anxiety.
[2016-10-23 07:00] VITALS: BP 163/96
--- NOTE | 2016-10-23 18:38 | NUR ---
PT WAS RECEIVED IN LYING IN BED. PT DENIES PAIN. NO HALLUCINATIONS ARE NOTED OR REPORTED. NO AGGRESSION NOTED. PT IS COOPERATIVE WITH STAFF AND IS SOCIAL WITH STAFF AND PEERS. PT IS COMPLIANT WITH MED'S AND CARE. PT HAS BEEN MORE HELPFUL WITH ASSISTING STAFF WITH TRANSFER TODAY. PT IS REDIRECTED NEEDED. SAFETY MEASURES ARE IMPLEMENTED. CONTINUE WITH PLAN OF CARE. WILL CONTINUE TO MONITOR.
[2016-10-23 19:30] VITALS: BP 185/76
--- NOTE | 2016-10-23 20:35 | NUR ---
RECEIVED IN DAINING ROOM LAYING IN RECLINING CHIAR. NOT SOCIALIZING WITH PEERS. ALERT AND ORIENTED. DENIES THOUGHT OF SELF HARM. ZACARIAS INTACT. CONTINUES TO RELAX IN RECLINER CALM AND COOPERATIVE WITH CARE AND ASSESSMENTS. CONTINUE PLAN OF CARE
[2016-10-24 08:38] VITALS: BP 157/78
--- NOTE | 2016-10-24 09:08 | NUR ---
Received this am, alert and oriented to times four, calm and cooperative, denies any self harm. Contracted for safety. Pleasant and social with others. Encouraged to verbalize feelings. Safety maintained. Cruz cushion in chair, encouraged to reposition every 2 hours. Continue with plan of care.
--- NOTE | 2016-10-24 13:41 | PN ---
PATIENT:JEET POPE MEDICAL RECORD: [id number] LOCATION:[facility] ADMISSION DATE: 10/17/16 PROGRESS NOTE DATE OF SERVICE: 10/21/2016 SUBJECTIVE: The patient's case was discussed with staff. She has no new complaint. OBJECTIVE: The patient is impaired significantly. She was tested by Dr. Sania Lamb and found to have significant impairment. Also, additional history indicates the patient may have been diagnosed with bipolar in the past. ASSESSMENT: No change in diagnoses. PLAN: I am going to start the patient on Namenda for its memory enhancing properties. She is already on Depakote. Hopefully, this will aid with her mood stabilization. I also think it is likely that she is going to require a longterm placement since she is unable to care for herself and clearly is more cognitively impaired than I thought. TRANSINT:[id number] Voice Confirmation ID: [id number] DOCUMENT ID: [id number] RISSA COBOS MD at 1341 CC: [id number] DICTATION DATE: 10/21/16 1359 INTERNET DESIGNER: 10/21/16 2037 ADM IN [facility] [address] [place] [address]
--- NOTE | 2016-10-24 14:02 | NUR ---
PETRONA SPOKE WITH PT'S DTR, JESSICA, ABOUT POSSIBLE DISCHARGE PLANS FOR THURSDAY 10/26. JESSICA HAD MULTIPLE QUESTIONS ABOUT DISCHARGE PLANS. PETRONA STATED PT WOULD NEED 13/03 SUPERVISION. PETRONA REPORTED SHE WOULD CALL [facility] HOME SO THEY CAN [facility] [employer] ONCE PT IS DISCHARGED FROM HOSPITAL. PETRONA EXPLAINED PT COULD ENTER A SENIOR LIVING SETTING IF CARE AT HOME DOES NOT WORK OUT FOR DTR. JESSICA FEELS THAT PT WILL THRIVE BETTER IN THE HOME ENVIRONMENT WITH [facility] INSTEAD OF A NH SETTING. JESSICA STATED SHE WOULD REPORT BACK TO PETRONA WHEN SHE MAKES ARRANGEMENTS FOR CARE IN THE HOME. JESSICA VERBALIZED UNDERSTANDING.
[2016-10-24 19:20] VITALS: BP 168/74
--- NOTE | 2016-10-24 19:54 | NUR ---
RECEIVED IN DAYROO. LAYING IN RECLINING CHAIR WITH EYES CLOSED. RESPONDS TO VOIVE. NOT SOCIALIZING. CALM AND COOPERATIVE WITH CARE AND ASSESSMENTS. ENCOPURAGE TO EXPRESS NEEDS. CONTINUES TO REST QUIETLY WITH EYES CLOSED. CONTINUE PLAN OF CARE
[2016-10-25 08:36] VITALS: BP 155/79
--- NOTE | 2016-10-25 09:51 | NUR ---
Nutrition Follow Up: Chart reviewed. Pt is eating 61% meal avg on a Regular diet. No new wt to assess. Per MD note pt reported decreased appetite. No new labs to assess. Meds noted including Lasix. +BM 10/24/16. Noted pt with stage II ulcers to coccyx, back. Pt with improving po intake. Rec continue current diet. Will send Ensure BID to increase protein, calorie intake to promote wound healing. Will continue to send selective menus and honor food preferences. RD following.
--- NOTE | 2016-10-25 11:00 | NUR ---
Alert and oriented times three, patient does not want to discuss what brought her here " you all know" Contracted for safety. Compliant with medications. Encouraged to express feelings. Safety maintained.
--- NOTE | 2016-10-25 15:13 | PN ---
PATIENT:JEET POPE MEDICAL RECORD: [id number] LOCATION:[facility] ADMISSION DATE: 10/17/16 PROGRESS NOTE DATE OF SERVICE: 10/24/2016 SUBJECTIVE: The patient's case was discussed with staff. She has no new complaint. OBJECTIVE: The patient denies intent to harm herself or others. She has a mood that is depressed, but certainly not suicidal, homicidal or delusional. ASSESSMENT: No change in diagnoses. PLAN: The patient will have her Depakote increased slightly. I still, even with this increase, would be confident that the dose is not toxic. I think that the medication may help her with some mood stabilization and impulsivity. I think her long-term prognosis is guarded and I would anticipate she could be transitioned out of the hospital soon if this level of improvement is maintained. TRANSINT:[id number] Voice Confirmation ID: [id number] DOCUMENT ID: [id number] RISSA COBOS MD at 1513 CC: [id number] DICTATION DATE: 10/24/16 1401 SUPERVISOR MAILS: 10/24/16 2220 ADM IN [facility] [address] [id number]
[2016-10-25 20:00] VITALS: BP 140/75
--- NOTE | 2016-10-26 01:50 | NUR ---
B) recieved patient sitting in the day room in a familia chair, alert and oriented to self, attention seeking, needy, I) Administered perscribed medications, redirected and encourged independs, R) Medication compliant, PRN Ativan given at 0100 for anxiety, PRN MOM given at 0100 for upset stomach and cramping, P) Continue plan of care continue to monitor.
[2016-10-26 09:49] VITALS: BP 136/81
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
[2016-10-26 09:54] VITALS: BP 154/91
--- NOTE | 2016-10-26 10:25 | NUR ---
B.) Alert and oriented to name and place, thinks its September. Does not discuss reason for hospitalization. Expresses no ideations for self harm, expresses hope and strong awa and belief. I.) Administer medications and monitor compliance. Monitor for any change in mood, encourage to express feelings. Encourage group participation. Reorient as need. Monitor safety. R.) Compliant with medications, Contracted for safety. Has impaired memory at times. Safety maintained. P.) Continue plan of care.
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
--- NOTE | 2016-10-26 16:33 | PN ---
PATIENT:JEET POPE MEDICAL RECORD: [id number] LOCATION:[facility] ADMISSION DATE: 10/17/16 PROGRESS NOTE DATE OF SERVICE: 10/25/2016 SUBJECTIVE: The patient's case was discussed with staff. She has no new complaint. OBJECTIVE: The patient denies intent to harm herself or others. She has a depressed mood. ASSESSMENT: No change in diagnoses. PLAN: The patient will be maintained on current medicines. Brief supportive and educational interventions were made. I anticipate the patient can be reasonably transitioned out of the hospital to a [place] [facility] [place] soon. TRANSINT:[id number] Voice Confirmation ID: [id number] DOCUMENT ID: [id number] RISSA COBOS MD at 1633 CC: [id number] DICTATION DATE: 10/25/16 1517 FOUNDRY WORKER GENERAL: 10/25/16 1846 ADM IN [facility] [address] [place] [address]
--- NOTE | 2016-10-26 23:05 | NUR ---
B) Recieved sitting in the day room, alert and oriented to self and hospital, calm and cooperative with staff, needy and attention seeking at times, no SI, I) administered perscribed medications, contracted for safety, R) Medication compliant, P) Continue plan of care.
[2016-10-26 23:15] VITALS: BP 139/62
[2016-10-27 08:00] VITALS: BP 149/65
--- NOTE | 2016-10-27 13:03 | PN ---
PATIENT:JEET POPE MEDICAL RECORD: [id number] LOCATION:[facility] ADMISSION DATE: 10/17/16 PROGRESS NOTE DATE OF SERVICE: 10/26/2016 SUBJECTIVE: The patient's case was discussed with staff. She has no new complaint. OBJECTIVE: The patient is in good behavioral control with limited insight about her condition. She actually is walking much better and actually walked 40 feet today with assistance. ASSESSMENT: No change in diagnoses. PLAN: The patient is appropriate for rehab and [facility] agreed to accept her. At this point, we were waiting for approval from the office of long-term care. TRANSINT:[id number] Voice Confirmation ID: [id number] DOCUMENT ID: [id number] RISSA COBOS MD at 1303 CC: [id number] DICTATION DATE: 10/26/16 1652 SLATE MIXER: 10/26/16 2301 ADM IN [place] [id number] [place] [address]
--- NOTE | 2016-10-27 15:50 | NUR ---
(B)RECEIVED PATIENT SITTING IN A CHAIR AT THE NURSES STATION. CONFUSED TO THE DAY THINKING IT IS MONDAY. RELATES THE REASON FOR HOSPITALIZATION "I WAS A NAUGHTY GIRL. I DON'T WANT TO TALK ABOUT IT. I TOOK TO MANY PILLS." DENIES FEELINGS OF WANTING TO HURT SELF AT THIS TIME. RELATED SHE IS AT [place] [place]OPERATIVE WITH STAFF. (I)ADMINISTER MEDS AND MONITOR COMPLIANCE. OBTAIN VERBAL CONTRACT FOR NO SELF HARM. (R)MED COMPLIANT. CONTRACTS VERBALLY FOR NO SELF HARM. (P)CONTINUE POC AND MAINTAIN FALL PRECAUTIONS.
[2016-10-27 20:25] VITALS: BP 132/72
--- NOTE | 2016-10-28 02:36 | NUR ---
PRN ATIVAN 0.5 MG PO GIVEN FOR ANXIETY.
[2016-10-28 08:59] VITALS: BP 171/76
--- NOTE | 2016-10-28 09:30 | NUR ---
B) PATIENT IS DOING BETTER, SHE CAN STAND NOW WITH ONE ASSIST, SHE IS ABLE TO SCOOT HERSELF BACK IN HER CHAIR, SHE IS EXERCISING HER ARMS AND LEGS. SHE DID TRY TO TALK LIKE SHE WAS EXHAUSTED AND SICKLY, BUT THIS NURSE AND DEB GOT HER TO WORKING OUT WITH HER LEGS AND THAT TALKING DISAPPEARED. I) PROVIDE PRESCRIBED MEDS, ENCOURAGE MORE MOBILITY AND NOT TO SPEAK LIKE SHE IS UNABLE TO DO ANYTHING. R) PATIENT HAS NOT BEEN DEMANDING OR RUDE TO ANY STAFF OR PEERS TODAY, NO S.I., NO DEPRESSION NOTED TODAY. P) CONTINUE PLAN OF CARE.
--- NOTE | 2016-10-28 14:44 | PN ---
PATIENT:JEET POPE MEDICAL RECORD: [id number] LOCATION:[facility] ADMISSION DATE: 10/17/16 PROGRESS NOTE DATE OF SERVICE: 10/27/2016 SUBJECTIVE: The patient's case was discussed with staff. She has no new complaint. OBJECTIVE: The patient is walking much better than she had previously done. She has fairly limited insight about her condition. She is tolerating her current medications very well. ASSESSMENT: No change in diagnoses. PLAN: Current medicines and therapies have been reviewed and will be maintained. Long-term prognosis is guarded. I will check a Depakote level and anticipate it is going to be subtherapeutic. TRANSINT:[id number] Voice Confirmation ID: [id number] DOCUMENT ID: [id number] RISSA COBOS MD at 1444 CC: [id number] DICTATION DATE: 10/27/16 1309 MARKET INTELLIGENCE CONSULTANT: 10/27/16 1703 ADM IN [place] [id number] [place] [address]
[2016-10-28 19:30] VITALS: BP 152/76
--- NOTE | 2016-10-28 23:41 | NUR ---
Patient in dayroom, in recliner with neckpillow and blankets. She is alert and oriented to person, place, time and situation. She is keeping to herself, doesn't seem to want to interact with peers. Denies feelings of self-harm. continue to monitor
[2016-10-29 07:53] VITALS: BP 152/78
--- NOTE | 2016-10-29 15:04 | NUR ---
(B)RECEIVED PATIENT SITTING IN A CHAIR AT THE NURSES STATION. ORIENTED X3. RATES PAIN 2/10 TO THE RECTUM. WHEN ASKED PATIENT THE REASON FOR HOSPITALIZATION PATIENT RELATES "I DON'T WANT TO TALK ABOUT IT" AND SMILED. PATIENT NODS YES WHEN TALKED WITH HER ABOUT TAKING TO MANY PILLS. RELATES NO LONGER HAS THOUGHTS OF HURTING SELF. SITS QUIETLY TO SELF. APPROPRIATE WHEN APPROACHED. (I)ADMINISTER MEDS AND MONITOR COMPLIANCE. OBTAIN VERBAL CONTRACT FOR NO SELF HARM . (R)MED COMPLIANT. CONTRACTS VERBALLY FOR NO SELF HARM. (P)CONTINUE POC AND MAINTAIN FALL PRECAUTIONS.
[2016-10-29 19:30] VITALS: BP 168/83
--- NOTE | 2016-10-30 03:39 | NUR ---
Patient in recliner in dayroom, oriented to person, place, time and situation. She denies suicidal ideation or thoughts of self harm. Patient entered verbal contract not to self harm. She was calm and cooperative with medication. Continue to monitor, continue plan of care.
--- NOTE | 2016-10-30 08:40 | NUR ---
UP IN RECLINER.ORIENTD X 3.DENIES PAIN.KNOWS WHY SHE IS HERE.DENIES ANY THOUGHTS OF HURTING SELF.IS CALM AND COOPERATIVE WITH STAFF AND PEERS.WILL CONTINUE WITH PLAN OF CARE,MONITOR FOR CHANGES AND SAFETY.
[2016-10-30 10:16] VITALS: BP 165/73
[2016-10-30 19:30] VITALS: BP 128/58
--- NOTE | 2016-10-30 21:08 | NUR ---
RECEIVED IN DAYROOM. SITTING IN RECLINER WITH EYES CLOSED. RESPONDS TO VOICE. ALET AND ORIENTED X4. CALM AND COOPERATIVE WITH CARE AND ASSESSMENT. DENIES THOUGHTS OF SELF HARM. ENCOURAGE TO EXPRESS NEEDS. PM MEDS GIVEN ORDRED. CONTINUES TO REST QUIETLY. CONTINUE PLAN OF CARE.
[2016-10-31 11:16] VITALS: BP 176/82
--- NOTE | 2016-10-31 14:16 | PN ---
PATIENT:JEET POPE MEDICAL RECORD: [id number] LOCATION:[facility] ADMISSION DATE: 10/17/16 PROGRESS NOTE DATE OF SERVICE: 10/28/2016 SUBJECTIVE: The patient's case was discussed with staff. She has no new complaint. OBJECTIVE: The patient is in good behavioral control with very limited insight about her condition. ASSESSMENT: No change in diagnoses. PLAN: The patient will be given Megace to assist with appetite stimulation. She has 2 sets of testing by Dr. Sania Lamb our neuropsychologist. The results are contradictory, one test shows her to have a mild to moderate dementia, the other tests shows her to have moderate to severe dementia. There may be some question as to how advanced her dementia is, but I do not think there is any real debate about whether or not one is present. Giving her the benefit of the doubt and looking at the most favorable test result, she has a mild to moderate dementia, but given that impairment and her physical limitations, I certainly think that correction placement is appropriate and unfortunately it is the least restrictive environment in which these needs can be met. TRANSINT:[id number] Voice Confirmation ID: [id number] DOCUMENT ID: [id number] RISSA COBOS MD at 1416 CC: [id number] DICTATION DATE: 10/28/16 1506 AIR CARGO GROUND OPERATIONS SUPERVISOR: 10/28/162030 ADM IN [place] [place] [address]
--- NOTE | 2016-10-31 18:22 | NUR ---
RECEIVED PATIENT THIS AM, ALERT AND ORIENTED TIMES FOUR. PLEASANT, SMILES AT STAFF. DID VERBALIZE REASON FOR BEING HERE " I TRIED TO KILL MYSELF." CONTRACTED FOR SAFETY WITH NO SUICIDAL IDEATIONS. ENCOURAED VERBALIZATION OF FEELINGS, ONE ON ONE TIME PROVIDED. ENCOURAGED GROUP PARTICIPATION. REPORTS BEING HOPEFUL, MEET WITH SCOTT ASSOSCIATED TODAY, PATIENT CONVERSED FREELY, AND WAS HOPEFUL ABOUT SITUATION. AMBULATED DISTANCE OF DAY ROOM TODAY, REQUIRING ENCOURAGEMENT. SHEN CUSHION IN CHAIR, AREA TO BUYTTOCKS RESOLVING WITH NO NEW SKIN ISSUES ASSESSED. SAFETY MAINTAINED. CONTINUE WITH PLAN OF CARE.
[2016-10-31 19:42] VITALS: BP 130/65
--- NOTE | 2016-11-01 02:29 | NUR ---
B) Recieved laying in a gerichair in the day room, alert and oriented X 3, calm and cooperative with care, no SI this shift, I) administered perscribed medications, assisted with transfers, R) Medication compliant, cooperative with care and assessment, P) Continue plan of care.
--- NOTE | 2016-11-01 07:30 | NUR ---
Patient awake in bed, complaining of her bladder hurting, venegas catheter checked, noted stat lock detached and catheter coiled and kinked. 200 ml of urine in bag, released kink and repositioned catheter, immediate urine drained into bag total in bag now 500 ml. Venegas bag noted to also be leaking, new bag and stat lock applied. Reports she feels better. Clear yellow urine draining into bag.
[2016-11-01 08:00] VITALS: BP 147/70
--- NOTE | 2016-11-01 11:41 | NUR ---
LATE ENTRY FROM 10/31. PT'S DTR DROPPED BY THE UNIT DUE TO HAVING CONCERNS ON THE WAITING PERIOD FOR THE SCOTT TO COME BACK DUE TO PT FLAGGING A PASSR LEVEL II. SW EXPLAINED THE SCOTT PROCESS AND THE REASON FOR THE SCOTT. SW ALSO STATED PT HAS IMPROVED IN PARTICIPATING IN PHYSICAL THERAPY AND ACTIVITIES DURING THE DAY. PT IS SLEEPING LESS DURING THE DAY AND MOVING MORE IN A WHEELCHAIR. PT'S DTR, JESSICA, STATED SHE WAS JUST ANXIOUS AND WANTED TO LET THE SW KNOW SHE HAS OPTIONS IN HER MOTHER'S CARE. SW ENSURED ALL OF JESSICA'S QUESTIONS WERE ANSWERED. SHE STATED SHE FELT BETTER AFTER THE CONVERSATION. SW STATED SHE WOULD FOLLOW UP WITH HER TOMORROW DURING FAMILY VISITATION. PETRONA ALSO STATED IT SHOULD BE APPROXIMATELY TWO TO THREE MORE DAYS BEFORE THE SCOTT RESULTS COME BACK DUE TO HER BEING INTERIEWED TODAY.
--- NOTE | 2016-11-01 11:59 | NUR ---
B.) Alert and oriented time four. Patient is now accepting what she did and is willing to state " I tried to end my life." Smiles and feels hopeful. I.) Administer medications and monitor compliance. Encourage expression of feelings. Provide one on one time. Encourage group participation. Contract for safety and monitor safety. R.) Compliant with medications. Social with staff and peers. Actively participates in group. Contracted for safety. No sucidal ideations. Safety Maintained. Continue with plan or care and monitoring.
--- NOTE | 2016-11-01 13:13 | NUR ---
Nutrition Follow Up: Chart reviewed. Pt is eating 53% meal avg on a regular diet. +BM 11/01/16. Meds noted including Megace, Lasix. No new labs to assess. Pt with fair po intake. Rec continue current diet. RD following.
--- NOTE | 2016-11-01 14:35 | PN ---
PATIENT:JEET POPE MEDICAL RECORD: [id number] LOCATION:[facility] ADMISSION DATE: 10/17/16 PROGRESS NOTE DATE OF SERVICE: 10/31/2016 SUBJECTIVE: The patient's case was discussed with staff. She has no new complaint. OBJECTIVE: The patient is in good behavioral control. She has cognitive impairment and some depressive symptoms. Her long-term prognosis is guarded. TRANSINT:[id number] Voice Confirmation ID: [id number] DOCUMENT ID: [id number] RISSA COBOS MD at 1435 CC: [id number] DICTATION DATE: 10/31/16 1515 DIETETIC TECHNICIAN: 10/31/16 2142 ADM IN [id number] [place] [address]
[2016-11-01] MEDS ORDERED: MEGACE40 MG PO (14:50)
[2016-11-01] MEDS ORDERED: DEPAKOTE250 MG PO (14:51)
[2016-11-01] MEDS ORDERED: ACETAMINOPHEN325 MG PO (14:51)
[2016-11-01] MEDS ORDERED: NAMENDA5 MG PO (14:51)
[2016-11-01] MEDS ORDERED: SENOKOT-S TABLE1 TAB PO (14:52)
[2016-11-01] MEDS ORDERED: PROTONIX40 MG PO (14:52)
[2016-11-01] MEDS ORDERED: MILK OF MAGNESI30 ML PO (14:52)
--- NOTE | 2016-11-01 19:53 | NUR ---
RECEIVED IN DAYROOM. SITTING IN WHEELCHAIR WITH PEERS AT HER SIDE. DENIES THOUGHTS OF SELF HARM. CALM AND COOPERATIVE WITH CARE AND ASSESSMENTS. ZACARIAS CATH INTACT. ENCOURAGE TO EXPRESS NEEDS. CONTINUES TO SIT QUIETLY IN WHEELCHAIR. CONTINUE PLAN OF CARE
[2016-11-01 20:00] VITALS: BP 129/77
--- NOTE | 2016-11-02 02:30 | NUR ---
PRN ATIVAN 0.5 MG GIVEN FOR ANXIETY AT 0230.
--- NOTE | 2016-11-02 07:30 | NUR ---
(B)RECEIVED PATIENT SITTING IN A CHAIR AT THE NURSES STATION. ORIENTED X3. RELATES IS HOSPITALIZED "I TRIED TO END MY LIFE. WAS GETTING DEPRESSED." CALM AND COOPERATIVE. REQUIRES ENCOURAGEMENT TO PERFORM ACTIVITIES INDEPENDENTLY AEB WILL FEED SELF HOWEVER DOES REQUIRE SOME HELP WITH PREPARATION AND HAS BEEN OBSERVED BEING MORE INDEPENDENT IF SOMEONE IS NOT STANDING RIGHT THERE. (I)ADMINISTER MEDS AND MONITOR COMPLIANCE. DISCUSS DISCHARGE PLANS WITH PATIENT. (R)MED COMPLIANT. DISCHARGE PAPERWORK SIGNED AND VERBALIZED KNOWLEDGE OF DISCHARGE. (P)CONTINUE POC AND MAINTAIN FALL PRECAUTIONS.
[2016-11-02 09:50] VITALS: BP 159/78
--- NOTE | 2016-11-02 10:00 | NUR ---
B) Alert, cooperative, med compliant, cooperative with staff, demanding at times, denies pain, no s/s distress. I) Admin meds as ordered, provide group activity as directed. R) Med compliant, cooperative with group activity. P) Cont current plan of care, discharge today to LTC facility.
--- NOTE | 2016-11-02 12:40 | NUR ---
REPORT CALLED TO JAYLEEN BANKS LPN AT [facility].
--- NOTE | 2016-11-02 12:49 | PN ---
PATIENT:JEET POPE MEDICAL RECORD: [id number] LOCATION:[facility] ADMISSION DATE: 10/17/16 PROGRESS NOTE DATE OF SERVICE: 11/01/2016 SUBJECTIVE: The patient's case was discussed with staff. She has no new complaint. OBJECTIVE: The patient is in good behavioral control with limited insight about her condition. She tolerates her medicines well. ASSESSMENT: No change in diagnoses. PLAN: Hopefully, the patient can be transitioned out of the hospital tomorrow. She is going to go to the residential for rehabilitative services. Her long-term prognosis is guarded. TRANSINT:[id number] Voice Confirmation ID: [id number] DOCUMENT ID: [id number] RISSA COBOS MD at 1249 CC: [id number] DICTATION DATE: 11/01/16 1453 CATALYST IMPREGNATOR: 11/01/16 1843 ADM IN [facility] [address] [place] [address]
--- NOTE | 2016-11-02 12:49 | NUR ---
CALLED JESSICA SINGH, PATIENT'S DAUGHTER AND INFORMED OF INDUSTRIAL RELATIONS COMMISSIONER TIME BY [facility] TO BE AROUND 2:30. MS. SINGH RELATES SHE WILL HERE AROUND 2:30 FOR THE INDUSTRIAL RELATIONS COMMISSIONER. RELATES TO STAFF SHE IS VERY APPRECIATIVE OF THE PHONE CALL REGARDING INDUSTRIAL RELATIONS COMMISSIONER TIME.
--- NOTE | 2016-11-02 13:45 | NUR ---
DISCHARGED TO [facility] ACCOMPANIED BY [facility] STAFF VIA FACILITY VEHICLE. PERSONAL BELONGINGS RETURNED TO PATIENT AND SENT WITH FACILITY STAFF. PAPERWORK FAXED TO FACILITY AND HARD COPY SENT WITH [facility]. CONDITION STABLE AT TIME OF DISCHARGE PER PHYSICIAN.
--- NOTE | 2016-11-03 15:28 | PN ---
PATIENT:JEET POPE MEDICAL RECORD: [id number] LOCATION:[facility] ADMISSION DATE: 10/17/16 PROGRESS NOTE DATE OF SERVICE: 11/02/2016 SUBJECTIVE: The patient's case was discussed with staff. She has no new complaint. OBJECTIVE: The patient is in good behavioral control with limited insight about her condition. She tolerates her medicines well. ASSESSMENT: No change in diagnoses. PLAN: The patient will be transitioned to the rehab unit today. I see no reason why she could not fully participate in that program. She seems motivated and is interested in getting stronger as she herself understands and has stated that going home will be contingent upon her becoming more independent. TRANSINT:[id number] Voice Confirmation ID: [id number] DOCUMENT ID: [id number] RISSA COBOS MD at 1528 CC: [id number] DICTATION DATE: 11/02/16 1255 CROSSWORD PUZZLE MAKER: 11/02/16 2151 DIS IN 11/02/[address] [facility] [address] [place] [address]
--- NOTE | 2016-11-15 14:34 | DS ---
PATIENT:JEET POPE :37 MEDICAL RECORD: [id number] DISCHARGE SUMMARY ADMISSION DATE: 10/17/16 DISCHARGE DATE: 11/02/16 IDENTIFYING DATA: The patient is 80-year-old and she was admitted to the hospital on voluntary basis secondary to an overdose. The patient had been admitted to the internal medicine service and intensive care unit about a week prior to this. At that time, she had attempted to kill herself by taking a very large amount of her antihypertensive medications metoprolol. She did this with a deliberate intent to hurt or kill herself. She was initially hypotensive, bradycardic and nonresponsive, but was stabilized in the Emergency Room. She apparently had sustain something of hypoxic injury related to the attempt and may well be impaired cognitively after the event, but it is difficult to assess since I have no means of measuring her cognition prior to the overdose. She did become more responsive in the intensive care unit and endorsed numerous depressive symptoms and said she would not try to harm herself again, but did so in a very unreassuring, unconvincing manner. HOSPITAL COURSE: The patient was admitted to the hospital and fully evaluated from both a medical, psychological, and social standpoint. She was found to have a history of bipolar disorder and was treated with both mood stabilizing and memory enhancing medications. She did show improvement. DISCHARGE DIAGNOSES: AXIS I: Bipolar disorder, depressed. Also, mild cognitive impairment. AXIS II: Deferred. AXIS III: Status post overdose, hypertension and torticollis. AXIS IV: Moderate stressors. AXIS V: Global assessment of functioning is 40. PLAN: At the time of discharge, the patient was not acutely dangerous to herself or others. Her mood had improved and she was not having mood lability. She was tolerating her medications well and was scheduled for outpatient followup. The patient had very limited insight about her situation. She did not show evidence of acute or direct dangerousness. She did have evidence of impairment cognitively, but it was not in the severe range. Again, this may be related to an underlying dementing process such as Alzheimer disease or it may be related to a hypoxic event associated with the overdose, it is difficult to say and probably time will tell. At the time of discharge, she was not acutely dangerous. TRANSINT:[id number] Voice Confirmation ID: [id number] DOCUMENT ID: [id number] RISSA COBOS MD at 1434 CC: [id number] DICTATION DATE: 11/14/16 1420 RETOUCHER: 11/15/16 0242 DIS IN 11/02/[address] [facility] [address] [place] [id number]
== END 2016-11-02 13:45 | DRG 885 ==
LOC: D.PSYCH 21:00
PROVIDERS: ADMIT Psychiatry & Neurology Psychiatry
DX: F31.30 Bipolar disorder, current episode depressed, mild or moderate severity, unspecified (principal); I10 Essential (primary) hypertension; M43.6 Torticollis; K59.00 Constipation, unspecified; D64.9 Anemia, unspecified; Z74.09 Other reduced mobility